=== PATIENT | male | born 1975 | race Caucasian/White ===

== ENCOUNTER → 2017-07-15 | Outpatient (CLI) | payer OTHER ==
--- NOTE | 2017-07-15 17:15 | Diagnostic Imaging Report ---
PROCEDURE: CT urinary tract, rule out kidney stone. TECHNIQUE: Multiple contiguous axial images were obtained through the abdomen and pelvis without the use of intravenous contrast. INDICATION: Left lower quadrant pain. CORRELATION STUDY: None. FINDINGS: LOWER THORAX: There is minimal patchy infiltrate of the right lung base just above the diaphragm. LIVER: 15 mm low-density foci in the most posterior aspect of the right lobe of the liver likely reflective of a cyst. Additional smaller one incompletely characterized but favors probable cyst as well. GALLBLADDER: Present and unremarkable. No bile duct dilatation. SPLEEN: Unremarkable. PANCREAS: Unremarkable. ADRENAL GLANDS: Unremarkable. KIDNEYS: Approximately 5 mm stone in the most distal aspect of the left ureter just proximal to ureterovesical junction is present which results in a mild left-sided obstructive uropathy. Slight engorgement of the left kidney with minimal perinephric stranding. Additional nonobstructing renal stones bilaterally. Right renal collecting system unremarkable. ABDOMINAL AORTA: Unremarkable, nonaneurysmal. A few shoddy subcentimeter central retroperitoneal and mesenteric lymph nodes. GASTROINTESTINAL TRACT: No obstruction or inflammation. Normal appendix. URINARY BLADDER: Relatively decompressed but generally unremarkable. REPRODUCTIVE: Prostate gland with a few punctate calcifications, otherwise unremarkable. OSSEOUS STRUCTURES: No acute abnormality. IMPRESSION: 1. Approximately 5 mm stone in most distal aspect of left ureter results in mild left-sided obstructive uropathy. Additional nonobstructing bilateral renal stones present. Dictated by: Dictated on workstation # [id number]
== END ==
LOC: RAD 16:44
PROVIDERS: ATTEND Nurse Practitioner Community Health
DX: N13.8 Other obstructive and reflux uropathy (principal); N20.2 Calculus of kidney with calculus of ureter
CPT/HCPCS: 74176